=== PATIENT | female | born 1995 | race Two or more races ===

== ENCOUNTER 2017-04-07 11:39 | Emergency (ER) | payer MEDICAID ==
[~2017-04-07] VITALS: Ht 167.6 cm; Wt 103.4 kg
[~2017-04-07 11:39] MED LIST: PREN-96 PO
[2017-04-07 12:37] VITALS: BP 132/88
[2017-04-07] MEDS ORDERED: methylPREDNISolone SOD SUCC 125 MG/2 ML VL IM ONE (13:15)
[2017-04-07] MEDS ORDERED: cefTRIAXone SOD 1,000 MG VL IM ONE (13:15)
[2017-04-07] MEDS ORDERED: LIDOCAINE 1% HCL (LOCAL ANESTH.) INJ 20ML MDV IN ONE (13:30)
== END 2017-04-07 13:54 | disposition home or self-care (01) ==
LOC: ER 11:39
DX: J03.90 Acute tonsillitis, unspecified (principal); N39.0 Urinary tract infection, site not specified; Z88.0 Allergy status to penicillin
CPT/HCPCS: 81025; 96372; 99284; J0696; J2001; J2930; J7030